=== PATIENT | male | born 1990 | race African-American/Black ===

== ENCOUNTER → 2024-12-23 | Outpatient (CLI) | payer OTHER ==
--- NOTE | 2024-12-23 10:39 | HMCIMG ---
ULTRASOUND OF THE TESTICLES ULTRASOUND ABD VASCULAR LIMITED INDICATION: Scrotal pain COMPARISON: None FINDINGS: The right testicle measures 5.3 x 2.4 x 4.2 cm. It is normal in echogenicity without mass. No hydrocele or varicocele demonstrated. Right epididymal head measures 0.7 cm. The left testicle measures 5.1 x 2.2 x 3.3 cm. It is normal in echogenicity without mass. No hydrocele or varicocele demonstrated. Left epididymal head measures 1.1 cm. Color Doppler flow is normal throughout the both testicles.Spectral Doppler analysis demonstrates a normal waveform pattern in regards to both testicles. Multiple small normal-appearing bilateral inguinal lymph nodes. Very small fat-containing 1.2 cm left inguinal hernia demonstrated. IMPRESSION: Very small fat-containing 1.2 cm left inguinal hernia demonstrated. No evidence for any acute testicular or epididymal abnormality.
== END | disposition home or self-care (01) ==
LOC: RAH 08:43 → EEVIPCON 09:00
PROVIDERS: ATTEND Family Medicine
DX: K40.90 Unilateral inguinal hernia, without obstruction or gangrene, not specified as recurrent (principal); R59.0 Localized enlarged lymph nodes; N50.82 Scrotal pain; R10.2 Pelvic and perineal pain; R10.30 Lower abdominal pain, unspecified
CPT/HCPCS: 76870; 76882

== ENCOUNTER → 2025-07-12 | Outpatient (CLI) | payer OTHER ==
[~2025-07-12] MED LIST: IOHEXOL-350 50ML VIAL IV ONE
--- NOTE | 2025-07-12 14:52 | HMCIMG ---
EXAM: CT CHEST WITH AND WITHOUT CONTRAST Technique: Helical computed tomography of the chest with non-contrast and post-contrast acquisitions; axial images with coronal and sagittal reformations; lung and soft-tissue reconstructions. CTDIvol: 21 mGy; DLP: 779 mGy???cm. Contrast: Standard dose of intravenous contrast administered. Clinical Information: Intercostal pain. Comparison: None. Findings: Soft tissues: Unremarkable. Lungs and large airways: Tracheobronchial tree is patent; a 4 mm solid pulmonary nodule is present in the right lower lobe (series 3, image 26); mild ground-glass opacities are present in the bilateral upper lobes and in the superior segments of both lower lobes; no focal consolidation is identified. Pleura: No pleural effusion or pneumothorax. Heart and pericardium: Cardiac size is within normal limits; no pericardial effusion. Aorta: Thoracic aorta normal in course and caliber; proximal ascending aorta measures 32 mm. Pulmonary arteries: No filling defects to suggest pulmonary embolism. Lymph nodes (mediastinal/hilar/axillary): No enlarged lymph nodes. Mediastinum and anastacio: No mass identified. Chest wall and lower neck: No abnormality identified. Bones/joints: No acute osseous abnormality. Upper abdomen: Fatty liver is noted where visualized. IMPRESSION: 1. Mild multifocal ground-glass opacities in bilateral upper lobes and superior segments of both lower lobes, most compatible with a mild infectious/inflammatory process. Correlate with symptoms and consider short-interval clinical/radiographic follow-up if symptoms persist or worsen. 2. 4 mm solid pulmonary nodule in the right lower lobe. For an incidental solitary solid nodule ?4 mm, no routine follow-up is generally recommended in low-risk patients; in higher-risk patients, optional computed tomography at 12 months may be considered (per Fleischner criteria). Correlate with clinical risk factors. 3. No pulmonary embolism, pleural effusion, or pneumothorax. 4. Proximal ascending aorta measures 32 mm, within normal limits. 5. Incidental hepatic steatosis in the visualized upper abdomen. /[place]
== END | disposition home or self-care (01) ==
LOC: RAH 09:12 → EEVIPCON 09:12
PROVIDERS: ATTEND Family Medicine
DX: R91.1 Solitary pulmonary nodule (principal); R07.82 Intercostal pain
CPT/HCPCS: 71270; Q9967